=== PATIENT | female | born 1970 | race Caucasian/White ===

== ENCOUNTER 2018-12-11 17:13 | Emergency (ER) | payer OTHER ==
[~2018-12-11] VITALS: Ht 152.4 cm; Wt 63.5 kg
[~2018-12-11 17:13] MED LIST: BROM2.5 PO; DULO60 PO; HYDCHL25; LAMO100; LORA1 PO; OLME20-12. PO; OXCA300; PHENA200 PO; SULTRIDS PO; VENL75ER
[2018-12-11] MEDS ORDERED: LISI20 PO (17:56)
[2018-12-11] MEDS ORDERED: AMLO5 PO (17:56)
[2018-12-11] MEDS ORDERED: Align4 MG PO (17:57)
[2018-12-11] MEDS ORDERED: Ocuflox5 ML BOTHEYES (18:19)
== END 2018-12-11 18:25 | disposition home or self-care (01) ==
LOC: ER 17:13
DX: H10.9 Unspecified conjunctivitis (principal)
CPT/HCPCS: 99282